=== PATIENT | male | born 1940 | race Caucasian/White ===

== ENCOUNTER 2024-02-14 08:14 | Day surgery (SDC) | payer OTHER, SELFPAY ==
[2024-02-14] VITALS (17 sets, daily range): BP systolic 160–194; BP diastolic 52–85
[2024-02-14] MEDS: NSS 500 IV (08:41)
[2024-02-14] MEDS: PERIDEX 0.12% ORAL RINSE 15 ML PO (08:41)
[2024-02-14] MEDS: BACTROBAN NASAL 1 GRAM NASAL (08:41)
[2024-02-14 09:11] LABS: Hematocrit 29.2 % (39.0-52.0); Mean Corp Hgb Conc. 34.2 g/dL (33.0-37.0); Mean Corpuscular Hgb 31.6 pg (27.0-31.0); Mean Corpuscular Volume 92.4 fL (80.0-94.0); Mean Platelet Volume 11.1 fL (7.4-10.4); Platelet Count 162 10^3/uL (130-400); Red Blood Cell Count 3.16 10^6/uL (4.70-6.10); Red Cell Dist. Width 13.2 % (11.5-14.5); White Blood Cell Count 5.9 10^3/uL (4.8-10.8)
[2024-02-14 09:13] LABS: Blood Urea Nitrogen 36 mg/dl (9-20); Calcium 9.1 mg/dl (8.4-10.2); Carbon Dioxide 24 mmol/L (22-30); Chloride 106 mmol/L (98-107); Estimated Creatinine Clearance 18 ml/min; Glucose 111 mg/dl (70-99); Potassium 4.1 mmol/L (3.5-5.1); Sodium 138 mmol/L (135-145); eGFR 21.71
[2024-02-14 09:17] LABS: INR 0.99; PT 13.1 Sec (11.4-14.6)
--- NOTE | 2024-02-14 09:54 | HP.FOC2 ---
Focused History & Physical
Chief Complaint
HPI:
Chief Complaint: ESRD
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 Sana Aparicio hemodialysis is imminent, he was referred to our vascular surgery team for creation of AV
fistula. He offers no complaints and reports he is at his baseline health.
Relevant Past Medical History: Coronary Artery Disease, Hypertension, Stroke (X 2 events) and Other (High cholesterol, stage IV kidney disease)
Relevant Family History: Positive for (Heart disease)
Relevant Past Surgical History: Positive for (Cardiac catheterization with PCI x 2 cardiac stents, right knee replacement, cholecystectomy)
Review of Systems
Review of Pertinent Systems: All Systems Negative
Medication
See Medication form for detailed medications: Yes
Medication List (including Herbals & OTC):
Saccharomyces boulardii 250 mg capsule (Florastor) 250 mg PO BID 02/12/24
allopurinol 300 mg tablet 150 mg PO DAILY 02/12/24
ascorbic acid (vitamin C) 100 mg tablet (Vitamin C) 100 mg PO DAILY 02/12/24
aspirin 81 mg capsule 81 mg PO DAILY 02/12/24
atenolol 50 mg tablet 50 mg PO BID 02/12/24
cilostazol 100 mg tablet 100 mg PO BID 02/12/24
docusate sodium 100 mg capsule (Colace) 100 mg PO PRN PRN constipation 02/12/24
doxazosin 8 mg tablet 8 mg PO QPM 02/12/24
enalapril maleate 20 mg tablet 20 mg PO BID 02/12/24
ferrous sulfate 325 mg (65 mg iron) tablet 325 mg PO .2-3 TIMES A WEEK 02/12/24
glycopyrrolate 1 mg tablet 1 mg PO HS 02/12/24
icosapent ethyl 1 gram capsule 1 g PO DAILY 02/12/24
loratadine 10 mg capsule 10 mg PO QPM 02/12/24
nifedipine 90 mg tablet,extended release 90 mg PO DAILY 02/12/24
nitroglycerin 0.4 mg sublingual tablet 0.4 mg sublingual Q5-15M PRN chest pain 02/12/24
pantoprazole 40 mg tablet,delayed release 40 mg PO DAILY 02/12/24
polyethylene glycol 3350 17 gram oral powder packet (Miralax) 17 g PO DAILY PRN constipation 02/12/24
pravastatin 40 mg tablet 40 mg PO DAILY 02/12/24
senna 2 cap PO PRN PRN constipation 02/12/24
torsemide 10 mg tablet 10 mg PO DAILY 02/12/24
Medications Reviewed: Yes
Allergies and Reactions
Patient has Allergies: No
Noted Allergies and Reactions:
Allergy/AdvReac Type Severity Reaction Status Date / Time
No Known Allergies Allergy Unverified 02/14/24 08:47
Pertinent Physical Exam
All Other Systems: Negative
Head/Neck: Normal
Lungs: Normal (Bilateral lungs CTA)
Heart: Normal (RRR)
Abdomen: Normal
Extremities: Normal (Bilateral +2 radial pulse)
Neurological: Normal
Diagnosis / Assessment
83-year-old male with chronic kidney disease
Plan / Procedure
Will proceed with scheduled left possible right upper extremity AV fistula creation with possible graft as planned per outpatient records.
Anesthesia/Sedation to be done by Anesthesia Provider: Yes
--- NOTE | 2024-02-14 10:00 | W.SUR.PREOP ---
Pre-Operative Surgical Note
-
I have examined this patient prior to the performance of the scheduled procedure.
The patient's condition is unchanged from the time of the current History and
Physical and the patient is able to undergo the scheduled procedure.
--- NOTE | 2024-02-14 11:54 | W.SUR.POST ---
Surgical Immediate Post Op
Note
Pre Op Diagnosis: ESRD
Post Op Diagnosis: ESRD
Procedure Performed: Left radiocephalic AV fistula creation
Primary Surgeon: Guicho Burris MD
facility assistant: CHACHA Bonilla
Anesthesia: GETA
Estimated Blood Loss: 3 ml
Fluids: See anesthesia flowsheet
Drains/Shunts: N/A
Specimens/Cultures: N/A
Doppler/Duplex/Angio (Y/N): Y, Doppler
Complications: None
Operative Findings: Palpable thrill at radial fistula creation
[2024-02-14] MEDS: DILAUDID 0.25 MG IV (12:45)
--- NOTE | 2024-02-14 12:48 | OR.RPT ---
Operative Report
Operative Report
PROCEDURE DATE: 02/14/2024
Preoperative diagnosis: End-stage renal disease approaching hemodialysis.
Postoperative diagnosis: Same
Procedure: Left upper extremity radiocephalic arteriovenous fistula creation
Surgeon: [place]
Trimmer Machine: FREDRICK Munoz, required for all aspects of procedure including assistance with traction/countertraction, following of suture line, assistance with closure.
Complications: None
Anesthesia: General
Indications for procedure:
End-stage renal disease approaching need for hemodialysis. Referred for AV access. Risk/benefits/alternatives of fistula creation were discussed with the patient and his family. They understood all wish to proceed.
Description of procedure:
Patient was identified brought to the operating room placed on the table in supine position. Upon induction of anesthesia, I used an ultrasound probe to map the left upper extremity veins. The left forearm cephalic vein appeared to be a very
suitable vein and across the antecubital fossa to become the basilic vein. (In the upper arm). However the forearm vein was suitable and I felt that I could use the forearm cephalic vein. Of note the patient did have a high bifurcation of the
radial artery in the proximal upper arm, but the radial artery at the wrist was strongly pulsatile and looked good on ultrasound. Therefore I elected to proceed with the radiocephalic AV fistula creation in the left upper extremity. After the
adequate administration of anesthesia and perioperative antibiotics [he] was prepped and draped in the standard surgical fashion. A standard preoperative timeout was undertaken and everybody was in agreement the plan. A longitudinal incision was
made distal forearm/wrist on the radial aspect. This was carried through skin subcutaneous tissue.
A small lateral subcutaneous flap was raised and the cephalic vein was identified. It was carefully dissected away from surrounding structures take great care to avoid any injury to the structures. It was noted to be a very suitable sized vein.
Any branches were ligated between silk ties and then divided. Thus this allowed me to mobilize the vein. Once I mobilized the suitable segment, I deepened my dissection in the medial aspect of the incision through the fascial layer. I identified
the radial artery. I carefully dissected away from surrounding structures take great care to avoid any injury to structures. I passed a vessel loop around it proximally and distally. This was double looped but not yet tightened.
Next, I ligated the cephalic vein distally in my field with a silk tie and a clip. I then transected it. I distended the vein under heparinized saline. It distended very well. I passed the dilators using 3 mm dilator which passed without any
difficulty whatsoever. I marked the anterior surface of the vein under distention to avoid any kinking or twisting.
Next, I gave the patient 3000 units of intravenous heparin. I tightened my double looped Vesseloops on the artery proximally and distally. I made an arteriotomy with a Briscoe blade and extended using a micro Marquez scissor. I then spatulated the
cephalic vein and sewed an end to side anastomosis using a running 7-0 Prolene suture. I backbled the artery and then completed and tied down my suture line. Next I released my proximal vessel loop. Finally I released my outflow vessel loop.
There was a good thrill in the fistula. There was an excellent pulse in the radial artery proximally and distally to the fistula, and more distally in the wrist as well. At this point I was very satisfied. I irrigated. I achieved and
confirmed full hemostasis. I then closed in layers using 3-0 Vicryl deep dermal layer followed by 4 Monocryl subcuticular stitch. Dermabond was applied.
[2024-02-14] MEDS: TYLENOL 650 MG PO (13:30)
[2024-02-14] MEDS: PROCARDIA XL (EXTENDED RELEASE) 30 MG PO (14:19)
[2024-02-14] MEDS: TENORMIN 50 MG PO (14:19)
[2024-02-14] MEDS: PROCARDIA XL (EXTENDED RELEASE) 60 MG PO (14:19)
== END 2024-02-14 15:42 | disposition home or self-care (01) ==
LOC: CATH 08:14
PROVIDERS: ATTENDING PHYSICIAN Surgery Vascular Surgery; FAMILY PHYSICIAN Internal Medicine; OTHER PHYSICIAN Internal Medicine Cardiovascular Disease
DX: I12.0 Hypertensive chronic kidney disease with stage 5 chronic kidney disease or end stage renal disease (principal); N18.6 End stage renal disease; E78.00 Pure hypercholesterolemia, unspecified; I25.10 Atherosclerotic heart disease of native coronary artery without angina pectoris; I25.2 Old myocardial infarction; Z95.5 Presence of coronary angioplasty implant and graft; Z86.73 Personal history of transient ischemic attack (TIA), and cerebral infarction without residual deficits; Z87.891 Personal history of nicotine dependence; Z79.82 Long term (current) use of aspirin
CPT/HCPCS: 36821; 80048; 85027; 85610; 85730; 93005

== ENCOUNTER → 2024-04-02 08:02 | Outpatient (REF) | payer OTHER, SELFPAY | LOC: RAD 08:02 | PROVIDERS: ATTENDING PHYSICIAN Surgery Vascular Surgery; FAMILY PHYSICIAN Internal Medicine | DX: I77.0 Arteriovenous fistula, acquired (principal); I73.9 Peripheral vascular disease, unspecified; R09.89 Other specified symptoms and signs involving the circulatory and respiratory systems | CPT/HCPCS: 93880; 93922; 93925; 93990 ==

== ENCOUNTER → 2024-10-14 12:33 | Outpatient (REF) | payer OTHER, SELFPAY | LOC: DHVS 12:33 | PROVIDERS: ATTENDING PHYSICIAN Surgery Vascular Surgery; FAMILY PHYSICIAN Internal Medicine | DX: N18.4 Chronic kidney disease, stage 4 (severe) (principal); I77.0 Arteriovenous fistula, acquired; I73.9 Peripheral vascular disease, unspecified; R09.89 Other specified symptoms and signs involving the circulatory and respiratory systems | CPT/HCPCS: 93880; 93922; 93925; 93990 ==

== ENCOUNTER 2024-12-11 08:24 | Day surgery (SDC) | payer OTHER, SELFPAY ==
[2024-12-11] VITALS (8 sets, daily range): BP systolic 110–142; BP diastolic 38–51; BMI 30.2
[2024-12-11 08:57] LABS: Hematocrit 29.3 % (39.0-52.0); Mean Corp Hgb Conc. 34.1 g/dL (33.0-37.0); Mean Corpuscular Hgb 30.7 pg (27.0-31.0); Mean Corpuscular Volume 89.9 fL (80.0-94.0); Mean Platelet Volume 11.4 fL (7.4-10.4); Platelet Count 111 10^3/uL (130-400); Red Blood Cell Count 3.26 10^6/uL (4.70-6.10); Red Cell Dist. Width 13.6 % (11.5-14.5); White Blood Cell Count 8.3 10^3/uL (4.8-10.8)
[2024-12-11 09:10] LABS: INR 1.01; PT 13.8 Sec (11.4-14.6)
[2024-12-11 09:11] LABS: APTT 31.1 Sec (23.4-35.0)
[2024-12-11 09:16] LABS: Blood Urea Nitrogen 49 mg/dl (9-20); Calcium 8.7 mg/dl (8.4-10.2); Carbon Dioxide 21 mmol/L (22-30); Chloride 110 mmol/L (98-107); Estimated Creatinine Clearance 13 ml/min; Glucose 115 mg/dl (70-99); Potassium 4.1 mmol/L (3.5-5.1); Sodium 141 mmol/L (135-145); eGFR 12.54
--- NOTE | 2024-12-11 09:22 | HP.FOC2 ---
Focused History & Physical
Chief Complaint
HPI:
Chief Complaint: High velocities by US at AVF site, pt has no complaints.
HPI / Indication for Planned Procedure:
84 yo male here today for planned outpatient fistulagram with Dr Burris. Pt presents at baseline health, denies recent illness or trauma. No recent changes in medications. Pt remain CKD4 not on HD yet. LUE fistula created by Dr Burris for potential future
need for HD. Easily palpable thrill. Hand warm and pink. Denies any issues. Pt agreeable to proceed with fistulagram today.
Relevant Past Medical History: Coronary Artery Disease (with stenting), Hypertension and Other (hypercholesterolemia, CVA x 2, )
Relevant Social History: Tobacco Use (former)
Relevant Family History: Positive for (Father- Valvular diease, Mother- CAD)
Relevant Past Surgical History: Positive for (LUE AVF by Dr Burris)
Review of Systems
Review of Pertinent Systems: All Systems Negative
Medication
See Medication form for detailed medications: Yes
Medication List (including Herbals & OTC):
Saccharomyces boulardii 250 mg capsule (Florastor) 250 mg PO BID 02/12/24
allopurinol 300 mg tablet 150 mg PO DAILY 02/12/24
aspirin 81 mg capsule 81 mg PO DAILY 02/12/24
atenolol 50 mg tablet 50 mg PO BID 02/12/24
cilostazol 100 mg tablet 100 mg PO BID 02/12/24
doxazosin 8 mg tablet 8 mg PO QPM 02/12/24
enalapril maleate 20 mg tablet 20 mg PO BID 02/12/24
glycopyrrolate 1 mg tablet 1 mg PO HS 02/12/24
loratadine 10 mg capsule 10 mg PO QPM 02/12/24
nifedipine 90 mg tablet,extended release 90 mg PO DAILY 02/12/24
nitroglycerin 0.4 mg sublingual tablet 0.4 mg sublingual Q5-15M PRN chest pain 02/12/24
polyethylene glycol 3350 17 gram oral powder packet (Miralax) 17 g PO DAILY PRN constipation 02/12/24
pravastatin 40 mg tablet 40 mg PO DAILY 02/12/24
torsemide 10 mg tablet 10 mg PO DAILY 02/12/24
acetaminophen 500 mg tablet 1,000 mg PO Q6H PRN pain 12/04/24
bisacodyl 5 mg tablet,delayed release (Dulcolax (bisacodyl)) 5 mg PO PRN PRN constipation 12/04/24
cholecalciferol (vitamin D3) 50 mcg (2,000 unit) tablet (Vitamin D3) 50 mcg PO DAILY 12/04/24
omega-3 acid ethyl esters 1 gram capsule 2 cap PO BID 12/04/24
pantoprazole 20 mg tablet,delayed release 20 mg PO DAILY 12/04/24
torsemide 10 mg tablet 10 mg PO MOWEFR@1800 12/04/24
levothyroxine 25 mcg tablet 25 mcg PO DAILY 12/06/24
Medications Reviewed: Yes
Allergies and Reactions
Patient has Allergies: No
Noted Allergies and Reactions:
Allergy/AdvReac Type Severity Reaction Status Date / Time
No Known Allergies Allergy Unverified 12/04/24 12:03
Pertinent Physical Exam
All Other Systems: Negative
Head/Neck: Normal
Lungs: Normal
Heart: Normal
Abdomen: Normal
Extremities: Other (Easily palpable thrill at left wrist AVF)
Neurological: Normal
Diagnosis / Assessment
CKD 4, not on HD yet.
Here s/p LUE AVF, high anastomotic velocities on US
Plan / Procedure
Planned outpatient fistulagram with Dr Burris today.
Anesthesia/Sedation to be done by Anesthesia Provider: Yes
[2024-12-11] MEDS: NSS 500 IV (09:43)
--- NOTE | 2024-12-11 11:12 | W.SUR.POST ---
Surgical Immediate Post Op
Note
Pre Op Diagnosis: CKD
Post Op Diagnosis: same
Procedure Performed: LUE fistulagram, central venogram, coil embolization stealing vein branch
Primary Surgeon: [place]
Anesthesia: local and sedation
Estimated Blood Loss: <2cc
Fluids: See anesthesia flow sheet
Drains/Shunts: none
Specimens/Cultures: none
Doppler/Duplex/Angio (Y/N): Y
Complications: none
Operative Findings: Palpable thrill
--- NOTE | 2024-12-11 17:35 | OR.RPT ---
Operative Report
Operative Report
PROCEDURE DATE: 12/11/2024
Preoperative diagnosis:
1.� Worsening chronic kidney disease.
2.� Status post left upper extremity radiocephalic arteriovenous fistula creation with poorly maturing fistula.
Postoperative diagnosis: Same
Procedure:
1.� Left upper extremity fistulogram and central venogram.
2.� Coil embolization of stealing vein branch with 4mm concerton coil and 6mm Cook Sulaiman coils.
3.� Supervision and interpretation.
Surgeon: [place]
Can Repairer: None
Complications: None
Anesthesia: Local, sedation
Fluoroscopy:
9.8 min
9 mGy
2.47 gy.cm2
Indications for procedure:
As above chronic kidney disease, poorly maturing fistula.� Risk/benefits/alternatives of fistulogram fully discussed.� Patient understood all wished to proceed.
Description of procedure:
Patient was identified, brought to the operating room.� Placed on the table in the supine position.� After the adequate administration of anesthesia, the patient was prepped and draped in the standard surgical fashion.� A standard preoperative
timeout was undertaken and everybody was in agreement with the plan.
The left upper extremity outflow vein of the fistula was punctured and a peripheral facing direction in the proximal volar aspect of the forearm under direct duplex ultrasound guidance with a micropuncture kit.� A 5 Tamazight sheath was advanced over a
0.035 inch wire.� 3000 units intravenous heparin administered. Fistulogram demonstrated patent outflow vein immediately adjacent to the sheath.� In the antecubital fossa the cephalic vein then drained into the deep vein which was patent through the
central venous system with no significant central venous stenosis on central venogram.� At this point I used a floppy angled hydrophilic wire and a glide catheter to try to image the fistula outflow vein closer to the anastomosis.� However initially
my catheter got into a vein branch that appeared to be stealing quite a bit from the main outflow vein.� I then reguided my wiring catheter into the main outflow vein.� Fistulogram demonstrated that the anastomosis appeared generally patent.� At
this point I tried to get my wire across the anastomosis into the proximal radial artery.� It was very easily traversing across anastomosis into the distal radial artery (outflow), but great difficulty angling back as the ankle was slightly
challenging.� However finally I was able to do so and my catheter passed without any difficulty.� With the catheter in the proximal radial artery I then obtained an arteriogram/fistulogram.� This demonstrated patent inflow artery and widely patent
anastomosis with no umair-\\ anastomotic stenosis.� Therefore there was no stenosis in this outflow vein.� Based on my ultrasound assessment the depth was not too much either.� The only finding was brisk filling into this stealing branch.� I therefore
then withdrew my glide catheter back into the outflow vein closer to the area of the sheath and then guided the wire in the catheter into the stealing branch.� Next I used a [employer] Systemso 4mm detachable coil which I inserted into the stealing branch.� As
I was deploying it I realized that this would be slightly small to put into the main stealing branch, and therefore put it into one of the other branches that was the more dominant.� This nicely embolized this branch.� I then withdrew the catheter
back slightly to the confluence of those 2 veins and then placed the Cook Sulaiman coils 6mm x 2 into the main trunk of the stealing vein branch.� Angiogram demonstrated good positioning.� Good occlusion of the vein.� At this point I withdrew my
catheter back into the main outflow vein of the fistula confirming patency of that.� At this point is very satisfied.� I withdrew my catheters and wires.� A 4-0 Monocryl pursestring stitch was placed around the sheath entry site, and was tied down
as the sheath was withdrawn.� Manual pressure was also applied gently to the puncture site.� Hemostasis was fully achieved.
The patient tolerated procedure well.
== END 2024-12-11 12:40 | disposition home or self-care (01) ==
LOC: CATH 08:24
PROVIDERS: ATTENDING PHYSICIAN Surgery Vascular Surgery; OTHER PHYSICIAN Internal Medicine Cardiovascular Disease; PRIMARYCARE PHYSICIAN Internal Medicine
DX: T82.898D Other specified complication of vascular prosthetic devices, implants and grafts, subsequent encounter (principal); Y83.2 Surgical operation with anastomosis, bypass or graft as the cause of abnormal reaction of the patient, or of later complication, without mention of misadventure at the time of the procedure; N18.4 Chronic kidney disease, stage 4 (severe); I12.9 Hypertensive chronic kidney disease with stage 1 through stage 4 chronic kidney disease, or unspecified chronic kidney disease; Z79.899 Other long term (current) drug therapy; Z79.82 Long term (current) use of aspirin; Z79.02 Long term (current) use of antithrombotics/antiplatelets
CPT/HCPCS: 36901; 36909; 80048; 85027; 85610; 85730; 86850; 86900; 86901; 93005; C1769; C1894; Q9967